=== PATIENT | male | born 1960 | race Two or more races ===

== ENCOUNTER 2018-07-20 11:23 | Outpatient (CLI) | payer OTHER ==
[~2018-07-20] VITALS: Ht 152.4 cm; Wt 98.0 kg
[~2018-07-20 11:23] MED LIST: ADULT ASPIRIN81 MG; FLONASE16 GM NS; MEDROL4 MG PO
== END 2018-07-20 11:40 | disposition home or self-care (01) ==
LOC: OFIC 805 11:23
DX: T17.298A Other foreign object in pharynx causing other injury, initial encounter (principal); F45.8 Other somatoform disorders

== ENCOUNTER 2018-07-25 11:32 | Outpatient (CLI) | payer OTHER | END 2018-07-25 13:15 | disposition home or self-care (01) | LOC: TOM 11:32 | DX: T17.208A Unspecified foreign body in pharynx causing other injury, initial encounter (principal) ==

== ENCOUNTER 2019-10-30 12:05 | Outpatient (CLI) | payer OTHER | END 2019-10-30 12:20 | disposition home or self-care (01) | LOC: MRI 12:05 | PROVIDERS: ATTEND Radiology Diagnostic Radiology | DX: M25.561 Pain in right knee (principal) | CPT/HCPCS: 73718 ==

== ENCOUNTER 2020-08-15 08:00 | Outpatient (CLI) | payer OTHER | END 2020-08-15 08:30 | disposition home or self-care (01) | LOC: PPH VACUNA 08:00 | DX: Z23 Encounter for immunization (principal) ==

== ENCOUNTER 2020-08-15 09:19 | Outpatient (CLI) | payer OTHER | END 2020-08-15 09:20 | disposition home or self-care (01) | LOC: NUCLEAR 09:19 | PROVIDERS: ATTEND Internal Medicine Cardiovascular Disease | DX: R07.89 Other chest pain (principal) ==

== ENCOUNTER 2020-09-03 07:30 | Day surgery (SDC) | payer OTHER ==
[2020-09-03] MEDS ORDERED: NEURONTIN600 M1 PO (18:59)
[2020-09-03] MEDS ORDERED: PERCOCET 5-3251 EACH PO (18:59)
[2020-09-03] MEDS ORDERED: COLACE100 MG PO (18:59)
== END 2020-09-03 21:30 | disposition home or self-care (01) ==
LOC: CIR.AMB 07:30
PROVIDERS: ATTEND Surgery
DX: K42.0 Umbilical hernia with obstruction, without gangrene (principal); Z20.822 Contact with and (suspected) exposure to COVID-19

== ENCOUNTER 2020-09-08 08:00 | Outpatient (CLI) | payer OTHER ==
[~2020-09-08 08:00] MED LIST changes: +COLACE100 MG PO; +NEURONTIN600 M1 PO; +PERCOCET 5-3251 EACH PO
== END 2020-09-08 08:30 | disposition home or self-care (01) ==
LOC: PPH VACUNA 08:00
DX: Z23 Encounter for immunization (principal)

== ENCOUNTER 2021-03-04 08:00 | Outpatient (CLI) | payer OTHER | END 2021-03-04 08:30 | disposition home or self-care (01) | LOC: PPH VACUNA 08:00 | PROVIDERS: ATTEND Emergency Medicine Pediatric Emergency Medicine | DX: Z23 Encounter for immunization (principal) ==

== ENCOUNTER 2021-04-24 08:00 | Outpatient (CLI) | payer OTHER | END 2021-04-24 08:30 | disposition home or self-care (01) | LOC: PPH VACUNA 08:00 | PROVIDERS: ATTEND Emergency Medicine Pediatric Emergency Medicine | DX: Z23 Encounter for immunization (principal) ==

== ENCOUNTER 2022-01-05 14:30 | Outpatient (CLI) | payer OTHER | END 2022-01-05 14:45 | disposition home or self-care (01) | LOC: PPH VACUNA 14:30 | PROVIDERS: ATTEND Emergency Medicine Pediatric Emergency Medicine | DX: Z23 Encounter for immunization (principal) ==

== ENCOUNTER 2023-04-13 15:36 | Outpatient (CLI) | payer OTHER | END 2023-04-13 15:41 | disposition home or self-care (01) | LOC: RAD 15:36 | DX: S42.222A 2-part displaced fracture of surgical neck of left humerus, initial encounter for closed fracture (principal) ==